=== PATIENT | female | born 2000 | race Caucasian/White ===

== ENCOUNTER 2024-02-08 08:43 | Outpatient (REF) | payer OTHER, SELFPAY ==
--- NOTE | ~2024-02-08 | US_ITS ---
EXAMINATION: US PELVIC COMPLETE WITH TV CLINICAL INFORMATION: Pelvic pain for 2 weeks, check position of intrauterine contraceptive device COMPARISON: None available. TECHNIQUE: Real-time transabdominal and transvaginal ultrasound scanning. FINDINGS: Transabdominal and transvaginal ultrasound examination of the pelvis were performed. Uterus: Anteverted; measuring 7.6 cm in length, 3.8 cm in AP diameter and 5.0 cm in width. Uterine cervix measures 2.4 cm in length. Echotexture: normal sonographic appearance Endometrial Thickness: 0.25 cm. Linear echogenicities corresponding to T shaped intrauterine contraceptive device are seen in optimal position. Endometrium, T-shaped intrauterine contraceptive device and uterus are well-demonstrated on 3-dimensional reconstructed images. Right ovary: 2.9 x 1.6 x 3.0 cm (SAG x AP x TRV), calculated volume of 7.4 mL, with normal echotexture. Left ovary: 2.8 x 2.1 x 2.3 cm (SAG x AP x TRV), calculated volume of 7.2 mL, with normal echotexture. No free fluid is present. Limited view of the urinary bladder shows no abnormality. US/US pelvic and transvaginal IMPRESSION: 1. Normal position of the T-shaped intrauterine contraceptive device. 2. Normal sonographic appearance of uterus. 3. Normal sonographic appearance of bilateral ovaries. 4. No abnormal pelvic fluid collection is seen. Electronically signed by: David Huggins MD 02/08/2024 12:48 PM EDT
== END 2024-02-08 08:44 | disposition home or self-care (01) ==
LOC: HO.UMASIMG 08:43
PROVIDERS: Visit Provider Nurse Practitioner Women's Health
DX: Z30.431 Encounter for routine checking of intrauterine contraceptive device (principal); R10.2 Pelvic and perineal pain
CPT/HCPCS: 76830; 76856